=== PATIENT | female | born 1990 | race Asian ===

== ENCOUNTER 2025-04-01 09:40 | Day surgery (SDC) | payer OTHER ==
[~2025-04-01] VITALS: Ht 152.4 cm; Wt 83.5 kg
[2025-04-01] MEDS ORDERED: FentaNYL Citrate 50 MCG/ML 2 ML Injection ONE (10:25)
[2025-04-01] MEDS ORDERED: Midazolam HCl 1MG / ML 2ML Vial ONE (10:25)
[2025-04-01] MEDS ORDERED: Ondansetron HCl 2 MG / ML 2ML Vial ONE (11:14)
[2025-04-01] MEDS ORDERED: Ketorolac Tromethamine 30mg Vial ONE (11:14)
[2025-04-01] MEDS ORDERED: Dexamethasone Sod Phos 10 MG/ML 1ML VIAL ONE (11:14)
--- NOTE | 2025-04-01 11:42 | NUR ---
04/01/25 1142 Ivelisse Solorio OUT OF MOUTH UPON ARRIVAL TO PACU. REPORT RECEIVED FROM ZAK AND RHONDA
--- NOTE | 2025-04-01 12:18 | NUR ---
04/01/25 1218 JOSE RIVERA PT DOES C/O A BIT OF A SORE THROAT. MAYBE 2-11/16. DENIES ALL OTHER DISCOMFORT. NO NAUSEA. PT APPEARS VERY SLEEPY AND CURRENT SAT IS 96% ON RA. PT DECLINES WARM BLANKET. PT WAS GIVEN TORADOL IN OR, SO WILL NOT BE GIVING HER ANY PO IBUPROFENT
== END 2025-04-01 12:54 | disposition home or self-care (01) ==
LOC: ORSCSDS 09:40
PROVIDERS: Obstetrics & Gynecology
PROC: 0UDB8ZX Extraction of Endometrium, Via Natural or Artificial Opening Endoscopic, Diagnostic (ICD-10-PCS; principal; 2025-04-01 11:00)
DX: N84.0 Polyp of corpus uteri (principal); N93.9 Abnormal uterine and vaginal bleeding, unspecified; E66.9 Obesity, unspecified; Z68.36 Body mass index [BMI] 36.0-36.9, adult
CPT/HCPCS: 88305; A9270; J1100; J1885; J2250; J2405; J2704; J3010

== ENCOUNTER 2025-07-21 21:08 | Emergency (ER) | payer OTHER ==
[~2025-07-21] VITALS: Ht 152.4 cm; Wt 81.7 kg
[2025-07-21 21:33] LABS: BASOPHILS ABSOLUTE AUTO 0.02 K/mm3 (0.00-0.23); BASOPHILS PERCENT AUTO 0 % (0-2); EOSINOPHILS ABSOLUTE AUTO 0.50 K/mm3 (0.00-0.68); EOSINOPHILS PERCENT AUTO 10 % (0-6); Hematocrit 35.6 % (33.0-51.0); Hemoglobin 11.5 g/dL (11.5-16.0); IMMATURE GRAN ABSOLUTE AUTO 0.01 K/mm3 (0.00-0.10); IMMATURE GRAN PERCENT AUTO 0 % (0-1); LYMPHOCYTES ABSOLUTE AUTO 1.94 K/mm3 (0.84-5.20); LYMPHOCYTES PERCENT AUTO 37 % (21-46); MONOCYTES ABSOLUTE AUTO 0.73 K/mm3 (0.16-1.47); MONOCYTES PERCENT AUTO 14 % (4-13); Mean Corpuscular HGB Conc 32.3 g/dL (31.5-36.5); Mean Corpuscular Volume 75 fL (80-100); NEUTROPHILS ABSOLUTE AUTO 2.04 K/mm3 (1.96-9.15); NEUTROPHILS PERCENT AUTO 39 % (41-73); NRBC ABSOLUTE 0.00 K/mm3 (0.00-0.02); NRBC Auto 0.0 /100 WBC (0.0-0.2); Platelet Count 347 K/mm3 (150-400); RDW Coefficient Variation 14.6 % (11.7-14.2); RDW Standard Deviation 39.2 fL (35.1-46.3)
[2025-07-21 22:29] LABS: Alanine Aminotransfer (ALT/SGP 32.0 U/L (12-78); Albumin, Blood 3.9 g/dL (3.4-5.0); Albumin/Globulin Ratio 1.0 (0.8-1.8); Anion Gap 5.0 mmol/L (3-11); Aspartate Aminotrans (AST/SGOT 16.0 U/L (12-37); Bilirubin, Total 0.4 mg/dL (0.1-1.0); Blood Urea Nitrogen 12.0 mg/dL (8-24); CO2, Blood 29.0 mmol/L (21-32); Calcium, Blood 8.8 mg/dL (8.5-10.1); Chloride, Blood 105.0 mmol/L (98-108); Creatinine, Blood 0.77 mg/dL (0.40-1.00); Globulin, Blood 4.1 g/dL (2.2-4.0); Glucose, Blood 169.0 mg/dL (70-99); Potassium, Blood 3.4 mmol/L (3.5-5.5); Sodium, Blood 136.0 mmol/L (136-145); Total Protein, Blood 8.0 g/dL (6.4-8.2)
[2025-07-21] MEDS ORDERED: RX Prepack Albuterol 1 PREPACK/6.7 GM INH UD ONE (23:45)
== END 2025-07-22 00:09 | disposition home or self-care (01) ==
LOC: ER 21:08
PROVIDERS: Student in an Organized Health Care Education/Training Program
DX: J20.9 Acute bronchitis, unspecified (principal); J06.9 Acute upper respiratory infection, unspecified
CPT/HCPCS: 71046; 80053; 84703; 85025; 99283-25; A9270